=== PATIENT | female | born 1940 | race Caucasian/White ===

== ENCOUNTER 2016-10-25 09:19 | Outpatient (CLI) | payer MEDICARE ==
[2016-10-25 10:19] LABS: #Basophils 0.1 thou/uL (0.0-0.2); #Eosinphils 0.3 thou/uL (0.0-0.7); #Lymphocytes 2.4 thou/uL (1.20-3.40); #Monocytes 0.7 thou/uL (0.11-0.59); #Neutrophils 2.9 thou/uL (1.40-6.50); %Eosinophils 5.2 % (0.0-10.0); %Lymphocytes 36.5 % (21.0-51.0); %Monocytes 11.1 % (0.0-10.0); %Neutrophils 45.2 % (42.0-75.0); Hemoglobin 12.9 g/dL (12.0-16.0); Mean Corpuscular HGB CONC 33.6 g/dL (32.0-36.0); Mean Corpuscular Hemoglobin 30.5 pg (27.0-31.0); Mean Corpuscular Volume 90.6 fl (81.0-99.0); Mean Platelet Volume 7.1 fL (7.4-10.4); Platelet Count 199 thou/uL (130-400); RBC Distribution Width 13.9 % (11.5-14.5); Red Blood Cell (RBC) Count 4.22 mill/uL (4.20-5.40); White Blood Cell (WBC) Count 6.4 thou/uL (4.8-10.8)
[2016-10-25 10:52] LABS: ALT (SGPT) 22 U/L (0-55); AST (SGOT) 24 U/L (5-34); Alkaline Phosphatase 84 U/L (40-150); Anion Gap 16 mmol/L (10-20); BUN (Urea Nitrogen) 12 mg/dL (9.8-20.1); Bilirubin, Direct 0.2 mg/dL (0.1-0.3); Bilirubin, Total 0.5 mg/dL (0.2-1.2); Calc. Creatinine Clearance 0 mL/min (70-130); Calcium 8.9 mg/dL (7.8-10.44); Carbon Dioxide 25 mmol/L (23-31); Cardiac Risk 4.4 (Less than 4.5); Chloride 102 mmol/L (98-107); Cholesterol 140 mg/dL (< 200 Desired); Estimated GFR-MDRD 71; Glucose 100 mg/dL (83-110); HDL Cholesterol 32 mg/dL (>60 Neg Risk); LDL Cholesterol, Calculated 69 mg/dL; Potassium 4.2 mmol/L (3.5-5.1); Protein, Total 6.6 g/dL (5.8-8.1); Sodium 139 mmol/L (136-145); Triglycerides 194 mg/dL (Less than 150)
== END 2016-10-25 09:20 ==
LOC: MADLABBHPM 09:19
PROVIDERS: ATTEND Family Medicine
DX: E03.9 Hypothyroidism, unspecified (principal); W55.01XA Bitten by cat, initial encounter
CPT/HCPCS: 36415; 80048; 80061; 80076; 84443; 85025

== ENCOUNTER 2017-08-23 21:19 | Emergency (ER) | payer MEDICARE ==
[2017-08-23] MEDS ORDERED: HYDROcodone/Acetaminophen 10/325 mg Tablet ONE (21:45)
--- NOTE | 2017-08-23 22:08 | RAD ---
THREE VIEWS OF THE RIGHT ANKLE: 08/23/17 INDICATION: Trip while getting into jeans six hours ago, now with pain in the right ankle. FINDINGS: No definite acute fracture or subluxation is evident. The ankle mortise and talar dome are preserved . Enthesopathic change seen off the calcaneus. There is partial visualization of healed osteotomy in volving the great toe metatarsal shaft. There is mild osteoarthrosis of the visualized midfoot. IMPRESSION: 1. No definite acute fracture or subluxation is evident. 2. Osteoarthrosis of the visualized right midfoot. 2. Enthesopathic change off the calcaneus. POS: [facility]
== END 2017-08-23 22:05 | disposition home or self-care (01) ==
LOC: MADERS 21:19
DX: S93.401A Sprain of unspecified ligament of right ankle, initial encounter (principal); E03.9 Hypothyroidism, unspecified; I48.91 Unspecified atrial fibrillation; X50.9XXA Other and unspecified overexertion or strenuous movements or postures, initial encounter

== ENCOUNTER 2018-07-23 09:45 | Outpatient (CLI) | payer MEDICARE ==
--- NOTE | 2018-07-23 11:42 | ULT ---
RENAL SONOGRAM: History: Renal mass. FINDINGS: Right kidney is 10.2 cm. Tiny cortical cysts are present near the superior pole, correlating with fin dings on recent CT and MRI. No hydronephrosis or solid mass. Left kidney is 10.1 cm with normal appearance. Urinary bladder is unremarkable. IMPRESSION: Small right renal cysts. No solid masses or other aggressive abnormalities. POS: [facility]
== END 2018-07-23 09:46 | disposition home or self-care (01) ==
LOC: MADULT 09:45
PROVIDERS: ATTEND Family Medicine
DX: R93.89 Abnormal findings on diagnostic imaging of other specified body structures (principal); N28.1 Cyst of kidney, acquired
CPT/HCPCS: 76770

== ENCOUNTER 2019-06-10 15:03 | Emergency (ER) | payer MEDICARE ==
[~2019-06-10 15:03] MED LIST: Iopamidol 370 76% 100 ML VIAL ONE
[2019-06-10 16:23] LABS: #Basophils 0.1 thou/uL (0.0-0.2); #Eosinphils 0.2 thou/uL (0.0-0.7); #Lymphocytes 1.5 thou/uL (1.20-3.40); #Monocytes 0.4 thou/uL (0.11-0.59); #Neutrophils 5.1 thou/uL (1.40-6.50); %Eosinophils 2.9 % (0.0-10.0); %Lymphocytes 20.9 % (21.0-51.0); %Monocytes 5.8 % (0.0-10.0); %Neutrophils 69.4 % (42.0-75.0); Hemoglobin 11.9 g/dL (12.0-16.0); Mean Corpuscular HGB CONC 32.9 g/dL (32.0-36.0); Mean Corpuscular Hemoglobin 29.2 pg (27.0-31.0); Mean Corpuscular Volume 88.6 fL (78.0-98.0); Mean Platelet Volume 5.5 fL (7.4-10.4); Platelet Count 215 thou/uL (130-400); RBC Distribution Width 12.5 % (11.5-14.5); Red Blood Cell (RBC) Count 4.08 mill/uL (4.20-5.40); White Blood Cell (WBC) Count 7.3 thou/uL (4.8-10.8)
[2019-06-10] MEDS ORDERED: Aspirin Chewable 81 MG TAB ONE (16:40)
[2019-06-10] MEDS ORDERED: Ondansetron PF 4 MG/2 ML Vial ONE (16:40)
[2019-06-10] MEDS ORDERED: Acetaminophen 500 MG TAB ONE (16:40)
[2019-06-10 16:41] LABS: ALT (SGPT) 21 U/L (8-55); AST (SGOT) 25 U/L (5-34); Albumin 4.1 g/dL (3.4-4.8); Alkaline Phosphatase 66 U/L (40-150); Anion Gap 17 mmol/L (10-20); BUN (Urea Nitrogen) 12 mg/dL (9.8-20.1); Bilirubin, Total 0.6 mg/dL (0.2-1.2); CK (CPK) 114 U/L (29-168); Calc. Creatinine Clearance 0 mL/min (70-130); Carbon Dioxide 23 mmol/L (23-31); Chloride 99 mmol/L (98-107); Estimated GFR-MDRD 69; Globulin 2.6 g/dL (2.4-3.5); Glucose 109 mg/dL (83-110); Lipase 61 U/L (8-78); Potassium 3.8 mmol/L (3.5-5.1); Protein, Total 6.7 g/dL (6.0-8.3); Sodium 135 mmol/L (136-145)
[2019-06-10 16:45] LABS: Bilirubin Negative (Negative); Blood, Urine Negative (Negative); Clarity Clear (Clear); Glucose, Urine (Dipstick) Negative (Negative); Leukocyte Negative (Negative); Nitrite Negative (Negative); Protein, Urine (Dipstick) Trace mg/dL (Neg-Trace); Urobilinogen 0.2 mg/dL (Less than 2)
--- NOTE | 2019-06-10 16:54 | RAD ---
Chest AP view INDICATION: Fever COMPARISON: March 19, 2018 FINDINGS: Lungs:The lungs are clear Cardiac silhouette pulmonary vasculature:The cardiomediastinal silhouette appears within normal limit s. Pleural spaces:No pleural effusion or pneumothorax is demonstrated. Upper abdomen:No abnormality seen. Osseous structures: No acute osseous abnormality. Midline sternotomy changes and bilateral rotator cu ff postsurgical change is stable. Additional findings:None. IMPRESSION: No acute cardiopulmonary abnormality.
--- NOTE | 2019-06-10 17:24 | CT ---
CT OF THE ABDOMEN AND PELVIS WITHOUT IV CONTRAST INDICATION: Abdominal pain and fever COMPARISON: CT the abdomen and pelvis with contrast dated July 17, 2018 FINDINGS: The lack of IV contrast limits evaluation of the solid organs of the abdomen and pelvis. ABDOMEN: Lung bases: There is a calcified granuloma in the left lower lobe. Liver: No focal lesion. Gallbladder: Surgically absent Pancreas: Normal. Adrenal glands: Normal. Spleen: Normal. Kidneys: Stable right renal cyst Retroperitoneum of the upper abdomen: No pathologically enlarged lymph nodes are evident. There is moderate calcified involving abdominal a shamar Additional findings: None. Pelvis: Small and large bowel: There is a moderate amount of retained stool within the colon. There is a norm al appendix in the right lower quadrant. Bladder: Normal. Rectal and perirectal soft tissues:Normal. Reproductive structures: Surgically absent Free fluid in pelvis: No free fluid is evident. Lymphadenopathy pelvis: No lymphadenopathy is evident. Osseous structures: No acute osseous abnormality. No destructive osteolytic or osteoblastic lesion i s identified. There is scattered degenerative and osteoarthritic changes. IMPRESSION: 1. No acute abnormality.
[2019-06-10] MEDS ORDERED: Morphine 4 MG/ML VIAL ONE (18:02)
== END 2019-06-10 18:07 | disposition home or self-care (01) ==
LOC: MADERS 15:03
DX: M79.10 Myalgia, unspecified site (principal); R10.9 Unspecified abdominal pain; R50.9 Fever, unspecified; R10.814 Left lower quadrant abdominal tenderness; E03.9 Hypothyroidism, unspecified; I48.91 Unspecified atrial fibrillation
CPT/HCPCS: 36415; 71045; 74177; 80053; 81003; 82550; 83605; 83690; 85025; 87040; 87086; 93005; 96372; 96374; J2270; J2405; Q9967

== ENCOUNTER 2020-04-27 13:08 | Emergency (ER) | payer MEDICARE ==
[2020-04-27 13:36] LABS: #Basophils 0.1 thou/uL (0.0-0.2); #Eosinphils 0.3 thou/uL (0.0-0.7); #Lymphocytes 3.1 thou/uL (1.20-3.40); #Monocytes 0.8 thou/uL (0.11-0.59); #Neutrophils 3.1 thou/uL (1.40-6.50); %Basophils 1.4 % (0.0-1.0); %Lymphocytes 41.6 % (21.0-51.0); %Monocytes 10.7 % (0.0-10.0); %Neutrophils 42.3 % (42.0-75.0); Hemoglobin 11.9 g/dL (12.0-16.0); Mean Corpuscular HGB CONC 31.5 g/dL (32.0-36.0); Mean Corpuscular Hemoglobin 28.3 pg (27.0-31.0); Mean Corpuscular Volume 89.8 fL (78.0-98.0); Mean Platelet Volume 6.2 fL (7.4-10.4); Platelet Count 234 thou/uL (130-400); RBC Distribution Width 12.6 % (11.5-14.5); Red Blood Cell (RBC) Count 4.21 mill/uL (4.20-5.40); White Blood Cell (WBC) Count 7.4 thou/uL (4.8-10.8)
[2020-04-27 13:42] LABS: PTT 28.3 sec (22.9-36.1); Prothrombin Time 12.7 sec (12.0-14.7)
[2020-04-27] MEDS ORDERED: Morphine 4 MG/ML VIAL ONE (13:43)
[2020-04-27] MEDS ORDERED: Morphine 2 MG/ML SYRINGE ONE (13:44)
[2020-04-27] MEDS ORDERED: Sodium Chloride 0.9% 500 ML ONE (13:44)
[2020-04-27] MEDS ORDERED: Ondansetron PF 4 MG/2 ML Vial ONE (13:44)
[2020-04-27 13:53] LABS: ALT (SGPT) 18 U/L (8-55); AST (SGOT) 23 U/L (5-34); Albumin 4.1 g/dL (3.4-4.8); Alkaline Phosphatase 64 U/L (40-110); Anion Gap 15 mmol/L (10-20); BUN (Urea Nitrogen) 15 mg/dL (9.8-20.1); Bilirubin, Total 0.4 mg/dL (0.2-1.2); Calc. Creatinine Clearance 0 mL/min (70-130); Calcium 8.9 mg/dL (7.8-10.44); Carbon Dioxide 25 mmol/L (23-31); Chloride 102 mmol/L (98-107); Estimated GFR-MDRD 67; Globulin 2.6 g/dL (2.4-3.5); Glucose 97 mg/dL (83-110); Potassium 4.5 mmol/L (3.5-5.1); Protein, Total 6.7 g/dL (6.0-8.3); Sodium 137 mmol/L (136-145)
--- NOTE | 2020-04-27 15:00 | CT ---
Exam: Chest CT with contrast Abdomen CT with contrast Pelvic CT with contrast Limited CT of the thoracic and lumbar spine HISTORY: Chest pain due to fall that happened approximately 30 minutes to an hour ago. Patient fell f rom a truck onto her back. Correlation: None COMPARISON: Abdomen pelvis CT 07/17/2018 FINDINGS: Chest CT: Mediastinum: No mass, lymphadenopathy or hematoma. Aorta: Normal caliber. Minimal atherosclerosis. No periaortic fat stranding Heart: Normal heart size. No significant pericardial fluid. There are coronary artery calcifications Trachea and central bronchi: Patent Pleural spaces: No pleural effusion Right lung: No mass, consolidation or contusion. No suspicious nodules Left lung:No mass, consolidation or contusion. No suspicious nodules Pneumothorax: None Abdomen CT: Gallbladder: Surgically absent gallbladder. Dilatation of the intra and extrahepatic biliary system d ue to reservoir effect Portal vein: Patent Liver: Appropriate enhancement. Spleen: Appropriate enhancement Pancreas: Appropriate enhancement Adrenal glands: Appropriate enhancement Lymphadenopathy: No gastrohepatic, retrocrural or periportal lymphadenopathy Kidneys: Symmetric enhancement. Bilaterally no obstructive uropathy. Subcentimeter hypodensities in t he left and right renal cortex too small to characterize Mesentery: No mass, lymphadenopathy, free air or free fluid Alimentary canal: Limited evaluation by the lack of oral contrast. No evidence of bowel obstruction. Normal ileocecal junction. Appendix is not appreciated. No secondary signs of appendicitis. Scattered fecal material in a nondistended, nondilated colon. Occasional diverticulum. No diverticuli tis. Pelvis CT: Uterus is surgically absent. No acute abnormality with regards to the urinary bladder. Presacral fat is preserved. No pelvic mass, lymphadenopathy, free air or free fluid. Osseous structures:Intact sternum. There are sternotomy changes. Scapula, clavicles are intact. Intac t bony pelvis. Intact obturator rings. Bilateral hips do not demonstrate fracture. No evidence of a right or left rib fracture. Thoracic and lumbar spine CT: Multilevel degenerative change. There is osteophyte formation. No fract ures or malalignment. IMPRESSION: No posttraumatic change in the chest, abdomen or pelvis. Transcribed Date/Time: 04/27/2020 3:16 PM
== END 2020-04-27 16:50 | disposition home or self-care (01) ==
LOC: MADERS 13:08
DX: S20.212A Contusion of left front wall of thorax, initial encounter (principal); E03.9 Hypothyroidism, unspecified; I48.91 Unspecified atrial fibrillation; M19.90 Unspecified osteoarthritis, unspecified site; Z79.899 Other long term (current) drug therapy; W06.XXXA Fall from bed, initial encounter
CPT/HCPCS: 71260; 74177; 80053; 83605; 84484; 85025; 85610; 85730; 96361; 96374; 96375; J2270; J2405; J7030; Q9967

== ENCOUNTER 2020-09-06 12:25 | Emergency (ER) | payer MEDICARE ==
[2020-09-06] MEDS ORDERED: Ibuprofen 400 MG TAB ONE (13:10)
[2020-09-06] MEDS ORDERED: Acetaminophen 500 MG TAB ONE (13:10)
--- NOTE | 2020-09-06 13:35 | RAD ---
EXAM: 4 views of the left knee HISTORY: Knee pain COMPARISON: None FINDINGS: No knee effusion is seen. There is no evidence of acute fracture or dislocation. Moderate t ricompartmental osteophytes are seen consistent with osteoarthritis.. No soft tissue swelling is present. Surgical clips are seen along the medial aspect of the knee. IMPRESSION: Moderate left knee osteoarthritis without evidence of acute osseous abnormality.
--- NOTE | 2020-09-06 13:37 | RAD ---
EXAM: 2 views of the left hip HISTORY: Left hip pain since last night COMPARISON: CT abdomen/pelvis 04/27/2020 FINDINGS: 2 views of the left hip shows no evidence of acute fracture or dislocation. Mild degenerati ve changes are seen in the hip. No soft tissue swelling is present. Vascular calcifications are seen. Surgical clips are seen in the left inguinal region. IMPRESSION: No evidence of acute osseous abnormality.
== END 2020-09-06 14:50 | disposition home or self-care (01) ==
LOC: MADERS 12:25
DX: M25.552 Pain in left hip (principal); E03.9 Hypothyroidism, unspecified; I48.91 Unspecified atrial fibrillation; M19.90 Unspecified osteoarthritis, unspecified site; Z79.899 Other long term (current) drug therapy; X58.XXXA Exposure to other specified factors, initial encounter; Y93.E1 Activity, personal bathing and showering

== ENCOUNTER 2020-09-27 11:20 | Outpatient (CLI) | payer MEDICARE ==
--- NOTE | 2020-09-27 11:37 | RAD ---
XR Lumbar Spine 2 Or 3 View HISTORY: Sciatica FINDINGS: Multilevel degenerative changes are present. No fracture, subluxation or bony destruction is seen. IMPRESSION: Lumbar spondylosis
== END 2020-09-27 11:21 | disposition home or self-care (01) ==
LOC: MADRAD 11:20
PROVIDERS: ATTEND Family Medicine
DX: M54.30 Sciatica, unspecified side (principal); M47.816 Spondylosis without myelopathy or radiculopathy, lumbar region
CPT/HCPCS: 72100

== ENCOUNTER 2020-10-19 10:08 | Outpatient (CLI) | payer MEDICARE ==
--- NOTE | 2020-10-19 10:42 | RAD ---
2 views left hip: 10/19/2020 COMPARISON: 09/06/2020 HISTORY: Chronic pain FINDINGS: There are prominent degenerative changes at the pubic symphysis. There is moderate degenera tive change of the left hip with superior joint space narrowing and lateral acetabular osteophyte formation. There is atherosclerotic calcification medial to the proximal left femur. Stable osteophyt e formation in the region of the greater trochanter. No acute fracture or dislocation is seen. There is significant degenerative change within the lower l umbar spine, incompletely imaged on this exam. IMPRESSION: Stable degenerative changes as detailed above.
== END 2020-10-19 10:09 | disposition home or self-care (01) ==
LOC: MADLAB 10:08
PROVIDERS: ATTEND Family Medicine
DX: M25.552 Pain in left hip (principal); M16.12 Unilateral primary osteoarthritis, left hip

== ENCOUNTER 2021-04-13 14:33 | Outpatient (CLI) | payer MEDICARE | END 2021-04-13 14:34 | disposition home or self-care (01) | LOC: MADRAD 14:33 | PROVIDERS: ATTEND Family Medicine | DX: R07.89 Other chest pain (principal); M81.0 Age-related osteoporosis without current pathological fracture | CPT/HCPCS: 71046 ==

== ENCOUNTER 2025-08-03 19:21 | Emergency (ER) | payer MEDICARE ==
[2025-08-03] MEDS ORDERED: Bacitracin 1 PK ONE (21:07)
== END 2025-08-03 21:29 | disposition home or self-care (01) ==
LOC: MADERS 19:21
DX: S90.812A Abrasion, left foot, initial encounter (principal); I48.91 Unspecified atrial fibrillation; E03.9 Hypothyroidism, unspecified; W01.0XXA Fall on same level from slipping, tripping and stumbling without subsequent striking against object, initial encounter; Z79.01 Long term (current) use of anticoagulants; Z95.1 Presence of aortocoronary bypass graft
CPT/HCPCS: 99283